=== PATIENT | male | born 1960 | race African-American/Black ===

== ENCOUNTER 2017-09-14 10:12 | Emergency (ER) | payer SELFPAY ==
[~2017-09-14] VITALS: Ht 182.9 cm; Wt 87.0 kg
[~2017-09-14 10:12] MED LIST: SULF-154 PO; VASO10TA8 PO
[2017-09-14 10:35] VITALS: BP 185/95; PULSE 77; RESP 18; TEMP 97.5; O2SAT 100
[2017-09-14] MEDS ORDERED: IBUP1TAB7 PO (11:02)
[2017-09-14] MEDS ORDERED: MEDR4PAK PO (11:02)
--- NOTE | 2017-09-14 11:03 | PD ---
HPI Chief Complaint: Musculoskeletal Complaint Time Seen by Provider: 10:48 Travel History International Travel<30 days: No Contact w/Intl Traveler<30days: No Traveled to known affect area: No History of Present Illness HPI 57-year-old male presents to the emergency department with complaint of right knee swelling and pain since Wednesday. He has had pain and swelling of his knee in the past, but not like this. He denies injury. Denies fever, vomiting. Denies paresthesias, loss of sensation, decreased range of motion, decreased strength to the affected extremity. Is ambulatory on the affected extremity. Rates pain 7/10. Worse with movement and palpation. Better at rest. Has not taken any medications or try any treatments to alleviate his symptoms. History of diabetes mellitus and hypertension and does not take medications for either. No known allergies. No primary care provider. Has no other medical complaints. No other modifying factors or associated signs and symptoms. PFSH Past Medical History Arthritis: No Asthma: No Autoimmune Disease: No Blood Disorders: No Anxiety: No Depression: No Heart Rhythm Problems: No Cancer: No Cardiovascular Problems: No High Cholesterol: Yes Chemotherapy: No Chest Pain: Yes Congestive Heart Failure: No COPD: No Cerebrovascular Accident: No Diabetes: Yes Diminished Hearing: No Gastrointestinal Disorders: No GERD: No Glaucoma: No Headaches: No Hepatitis: No Hiatal Hernia: No Hypertension: No Kidney Stones: No Musculoskeletal: No Neurologic: No Psychiatric: No Reproductive: No Respiratory: No Myocardial Infarction: No Radiation Therapy: No Renal Failure: No Seizures: No Sickle Cell Disease: No Sleep Apnea: No Thyroid Disease: No Ulcer: No Past Surgical History Abdominal Surgery: No AICD: No Cardiac Surgery: No Ear Surgery: No Endocrine Surgery: No Eye Surgery: No Genitourinary Surgery: No Gynecologic Surgery: No Neurologic Surgery: No Oral Surgery: No Pacemaker: No Thoracic Surgery: No Social History Alcohol Use: No Tobacco Use: No Substance Use: No Allergies-Medications (Allergen,Severity, Reaction): Coded Allergies: No Known Allergies (Verified Adverse Reaction, Unknown, 09/14/17) Reported Meds & Prescriptions Reported Meds & Active Scripts Active Ibuprofen 800 Mg Tab 800 Mg PO Q6HR PRN Medrol Dosepak (Methylprednisolone) 4 Mg Dspk 4 Mg PO DIRECTED Per Pharmacist direction Review of Systems Except as stated in HPI: all other systems reviewed are Neg Physical Exam Narrative GENERAL: Well-nourished, well-developed black male patient, in no acute distress ; afebrile, nontoxic-appearing SKIN: Warm and dry. HEAD: Atraumatic. Normocephalic. EYES: Pupils equal and round. No scleral icterus. No injection or drainage. ENT: Mucosa pink and moist. Airway patent. NECK: Trachea midline. CARDIOVASCULAR: Regular rate. RESPIRATORY: No accessory muscle use. GASTROINTESTINAL: Flat MUSCULOSKELETAL: Right knee edematous, nonerythematous, and without ecchymosis; full range of motion and flexion to 90; point tenderness to the medial, lateral aspect; joint stable with negative drawer test; no obvious deformity. Right lower extremity is supple and non-tense with 2+ pedal pulse and sensory intact and without erythema or edema. Ambulatory with normal gait. NEUROLOGICAL: Awake and alert. Oriented 3. No obvious cranial nerve deficits. Motor grossly within normal limits. Normal speech. PSYCHIATRIC: Appropriate mood and affect; insight and judgment normal. Data Data Last Documented VS Vital Signs Date Time Temp Pulse Resp B/P (MAP) Pulse Ox O2 Delivery O2 Flow Rate FiO2 09/14/17 10:35 97.5 77 18 185/95 (125) 100 Orders Orders Splint Or Brace Apply/Monitor (09/14/17 11:03) Crutches (09/14/17 11:03) Ed Discharge Order (09/14/17 11:03) MDM Medical Decision Making Medical Screen Exam Complete: Yes Emergency Medical Condition: Yes Medical Record Reviewed: Yes Differential Diagnosis Arthritis, bursitis, nonspecific pain and swelling of the right knee Narrative Course 57-year-old male with pain and swelling of his right knee. Denies injury. I offered to x-ray the knee, but the patient declined, and I do not feel it imaging is necessary at this time because I do not suspect fracture or dislocation. Suhail bandage and crutches provided for support. Ibuprofen and Medrol Dosepak prescribed for home. Patient provided information to [facility] for follow-up. Instructed patient to follow up with primary care provider. Patient verbalizes understanding and agreement with treatment plan. Patient is medically cleared and stable for discharge. Discussed reasons to return to the emergency department. Patient agrees with treatment plan. The patients vital signs are stable and the patient is stable for outpatient follow- up and treatment. Patient discharged home, stable and in no acute distress. Diagnosis Primary Impression: Pain and swelling of right knee Referrals: [facility] Orthopedist Primary Care Physician Patient Instructions: General Instructions, Knee Pain (ED) Additional Instructions: Tylenol or ibuprofen as needed and as directed to reduce pain and inflammation Rest, ice, compress, and elevate extremity to decrease pain and inflammation Knee brace for support Crutches for support Follow-up with primary care provider Follow-up with orthopedics Return to the emergency department immediately with worsening symptoms Med/Other Pt SpecificInfo: Prescription(s) given Scripts Ibuprofen (Ibuprofen) 800 Mg Tab 800 MG PO Q6HR Y for PAIN, #20 TAB 0 Refills Prov: Maryann Harp 09/14/17 Methylprednisolone Dosepak (Medrol Dosepak) 4 Mg Dspk 4 MG PO DIRECTED, #1 DSPK 0 Refills Per Pharmacist direction Prov: Maryann Harp 09/14/17 Disposition: 01 DISCHARGE HOME Condition: Stable Maryann Harp Sep 14, 2017 11:03
== END 2017-09-14 11:27 | disposition home or self-care (01) ==
LOC: NEPK 10:12
DX: M25.461 Effusion, right knee (principal)
CPT/HCPCS: 99283; E0113